=== PATIENT | female | born 1965 | race Caucasian/White ===

== ENCOUNTER → 2017-06-11 13:18 | Outpatient (CLI) | payer BC ==
[2010-05-23 10:31] VITALS: BMI 26.3
== END | disposition home or self-care (01) ==
LOC: D.CT 13:18
DX: K46.9 Unspecified abdominal hernia without obstruction or gangrene (principal); R10.12 Left upper quadrant pain; R19.7 Diarrhea, unspecified; R10.13 Epigastric pain